=== PATIENT | male | born 1970 | race Caucasian/White ===

== ENCOUNTER 2017-08-18 15:31 | Day surgery (SDC) | payer OTHER ==
[~2017-08-18] VITALS: Ht 182.9 cm; Wt 131.5 kg
[2017-08-18 13:03] VITALS: BMI 39.0
[~2017-08-18 15:31] MED LIST: ASPEC325 PO; ASPI81TA28 PO; CEFAZOLIN 3000MG IV PUSH 22.5 ML IV SCH; CITA40TA4 PO; FENO145T26 PO; FLM4 PO; LACTATED RINGER'S 1000ML 1,000 ML IV SCH; MULT-506 PO; PANT40TA PO; SILD100T PO; SIMV20TA5 PO; TRMO2580 TOP; VARE1PAK15 PO
[2017-08-18 15:53] VITALS: BP 138/84; PULSE 75; TEMP 36.7; O2SAT 97; Ht 182.9 cm; Wt 131.5 kg
[2017-08-18] MEDS ORDERED: NURSING VERBAL MED ORDER ONE (17:00)
--- NOTE | 2017-08-18 17:01 | History & Physical Bridge Note ---
H&P Re-Evaluation Bridge Note: I have examined the patient, reviewed the History & Physical and in the interval since the performance of the History & Physical I have noted the following changes of clinical significance: No changes noted
[2017-08-18] MEDS ORDERED: ONDANSETRON INJ 2 MG/ML 2 ML VIAL ONE (17:29)
[2017-08-18] MEDS ORDERED: DEXAMETHASONE SOD INJ 4 MG/ML VIAL ONE (17:29)
[2017-08-18] MEDS ORDERED: LIDOCAINE HCL 2% 2 ML VIAL (20MG/ML) ONE (17:30)
[2017-08-18] MEDS ORDERED: PROPOFOL IV EMULSION 10 MG/ML 20 ML VIAL IV ONE (17:30)
[2017-08-18] MEDS ORDERED: BELLADONNA/OPIUM SUPP 60 MG SUPP PR ONE ×2 (17:55→18:04)
--- NOTE | 2017-08-18 18:27 | [facility] Operative Report ---
Operative Report Operative Date Aug 18, 2017. Pre-Operative Diagnosis Right ureteral stone Post-Operative Diagnosis Right ureteral stone Procedure(s) Performed Cystoscopy, right ureteroscopy, laser lithotripsy, basket stone extraction, right stent insertion Surgeon Dr. Stafford Advertising Intern Surgeon(s) None Estimated Blood Loss 1ml Findings small radio-opaque obstructing distal ureteral stone Specimens a. right ureteral stone fragments Drains 6 fr 26 centimeter double J stent Anesthesia Type General Complication(s) none Disposition yes Recovery Room / PACU Indications obstructing right distal ureteral stone with renal insufficiency Description of Procedure Patient was given general anesthesia and placed in lithotomy position. His genitals were prepped and draped in sterile fashion. Time out held with team. I placed a 21 fr rigid cystoscope to bladder. The urethra is narrow at the meatus and the fossa navicularis. The prostate is small and the bladder neck is quite high. The UOs are close to bladder neck. I placed a road runner wire right ureter with some difficulty with the stone in the distal ureter about 20mm from the Uo. I saw very brisk efflux once the wire was up. There was also some thick tubular tissue seen passing. I could not pass a 5 fr along the wire as stone is quite obstructing but I was able to manilupate a stiff wire up the ureter. I calibrated just the very distal ureter below the stone with a dual lumen. I placed a short semirigid scope into the distal ureter. I used a 200 micron holmium laser to gragment the stone into about 6 pieces. I use a 2.4 fr zero tip basket to grasp the largest fragment and removed it and sent it for specimen. I then placed a 26 centimeter 6 Fr double J stent easily. There is brisk efflux after placement. I left bladder empty and concluded case. I placed a belladonna and opium suppository for post-op pain. He transferred to recovery under my escort, in stable condition. Plan: Home today Pyridium for dysuria x 3 days flomax daily oral pain meds as needed stent out in 1-2 weeks ASA 3 clean contaminated case 40 seconds fluoro ancef antibiotic key person I attest to the content of the Intraoperative Record and any orders documented therein. Any exceptions are noted below.
[2017-08-18] MEDS ORDERED: OXYC-57 PO (18:29)
[2017-08-18] MEDS ORDERED: PHEN-775 PO (18:29)
[2017-08-18] MEDS ORDERED: LABETALOL HCL IV 5 MG/ML 20ML IV PRN (18:30)
[2017-08-18] MEDS ORDERED: PROMETHAZINE HCL INJ 12.5 MG in SODIUM CHLORIDE 0.9% 50ML 50 ML IV PRN (18:30)
[2017-08-18] MEDS ORDERED: EpHEDrine SULFATE INJ 50 MG/ML AMP IV PRN (18:30)
[2017-08-18] MEDS ORDERED: ATROPINE SULFATE 0.1 MG/ML 5ML SYR IV PRN (18:30)
[2017-08-18] MEDS ORDERED: ONDANSETRON INJ 2 MG/ML 2 ML VIAL IV PRN (18:30)
[2017-08-18] MEDS ORDERED: NALOXONE HCL 0.4 MG/1 ML VIAL/CARP IV PRN (18:30)
[2017-08-18] MEDS ORDERED: FENTANYL CITRATE INJ 50 MCG/1 ML 2 ML VIAL IV PRN (18:30)
[2017-08-18] MEDS ORDERED: FLUMAZENIL 0.1 MG/1 ML 10 ML VIAL IV PRN (18:30)
--- NOTE | 2017-08-18 18:30 | Discharge Instructions ---
Discharge Instructions Date of Service Aug 18, 2017. Admission Reason for Admission: Right ureteral Stone Discharge Discharge Diagnosis / Problem: right ureteral stone Discharge Goals Goal(s): Decrease discomfort, Improve function, Improve disease control Activity Recommendations Activity Limitations: resume your previous activity Lifting Limitations: none Exercise/Sports Limitations: as tolerated May Resume Sexual Activity: when tolerated Shower/Bathe: no limitations Driving or Machine Use: resume 1 day after discharge . Instructions / Follow-Up Instructions / Follow-Up stent removal in 1-2 weeks at [facility] Current Hospital Diet Patient's current hospital diet: Discharge Diet Recommended Diet: Renal Diet Fluid Restriction: None Procedures Procedures Performed: Cystoscopy, right ureteroscopy, laser lithotripsy, basket stone extraction, right stent insertion Pending Studies Studies pending at discharge: no Medical Emergencies . Who to Call and When: Medical Emergencies: If at any time you feel your situation is an emergency, please call 911 immediately. . Non-Emergent Contact Non-Emergency issues call your: Urologist Call Non-Emergent contact if: temperature is above 100.5, your pain is not controlled . . "Provider Documentation" section prepared by Brandi Stafford. . [place] Drug Monitoring Program Search Results: patient reviewed within database, no issues identified
[2017-08-18] MEDS ORDERED: PERCOCET HOME PACK PO ONE (18:45)
[2017-08-18] MEDS ORDERED: PHENAZOPYRIDINE HCL 200 MG TAB PO PRN (18:45)
[2017-08-18] MEDS ORDERED: OXYCODONE/ACETAMINOPHEN 5-325 TAB PO PRN (18:45)
[2017-08-18 19:01] VITALS: BP 148/83; PULSE 61; TEMP 36.6; O2SAT 95
--- NOTE | 2017-08-18 19:16 | DIAGNOSTIC IMAGING REPORT ---
[facility] CLINICAL HISTORY: 46 years-old Male presenting with RIGHT KIDNEY STONE. TECHNIQUE: 3 fluoroscopic spot image(s) obtained as part of an intraoperative procedure. COMPARISON: None. FINDINGS/IMPRESSION: A guidewire was introduced into the right ureter and a right ureteral stent was placed. Please see surgical report for further details. Dose area product (mGy.cm^2): 4057.1. Fluoroscopy time: 82.5 seconds. Number of fluoroscopic spot images: 3. Electronically signed by: Jairo Jacobo M.D. 08/18/2017 7:14 PM Dictated Date/Time: 08/18/2017 7:13 PM
--- NOTE | 2017-08-18 19:20 | Anesthesiology Progress Note ---
Anesthesia Post Op Note Date & Time Aug 18, 2017 at 19:19 Vital Signs Pain Intensity: 0 Vital Signs Past 12 Hours Date Time Temp Pulse Resp B/P (MAP) Pulse Ox O2 Delivery O2 Flow Rate FiO2 08/18/17 19:01 36.6 61 18 148/83 95 Room Air 10 Oxymask 08/18/17 18:43 68 12 08/18/17 18:43 69 12 95 08/18/17 18:41 148/83 08/18/17 18:39 36.4 65 18 125/90 (105) 95 Room Air Oxymask 08/18/17 18:38 67 18 95 08/18/17 18:38 67 18 08/18/17 18:37 152/70 08/18/17 18:33 65 15 97 08/18/17 18:33 65 15 08/18/17 18:31 156/86 08/18/17 18:28 74 15 97 08/18/17 18:28 73 15 08/18/17 18:26 142/72 08/18/17 18:23 65 13 100 08/18/17 18:23 64 13 08/18/17 18:22 66 16 08/18/17 18:22 65 16 100 08/18/17 18:21 129/84 08/18/17 18:17 70 13 100 08/18/17 18:17 69 13 08/18/17 18:16 145/73 08/18/17 18:13 146/73 08/18/17 18:12 36.0 73 15 146/73 (94) 100 Oxymask 10 08/18/17 15:53 36.7 75 18 138/84 (102) 97 Room Air Notes Mental Status: alert / awake / arousable, participated in evaluation Pt Amnestic to Procedure: Yes Nausea / Vomiting: adequately controlled Pain: adequately controlled Airway Patency, RR, SpO2: stable & adequate BP & HR: stable & adequate Hydration State: stable & adequate Anesthetic Complications: no major complications apparent
[2017-08-18 19:29] VITALS: BP 130/74; PULSE 68; O2SAT 95
== END 2017-08-18 19:55 | disposition home or self-care (01) ==
LOC: C.ACU 15:31
PROVIDERS: ATTEND Urology
DX: N20.1 Calculus of ureter (principal); E78.5 Hyperlipidemia, unspecified; K21.9 Gastro-esophageal reflux disease without esophagitis; F43.21 Adjustment disorder with depressed mood; N52.9 Male erectile dysfunction, unspecified; F90.9 Attention-deficit hyperactivity disorder, unspecified type; G47.33 Obstructive sleep apnea (adult) (pediatric); Z89.411 Acquired absence of right great toe; Z88.5 Allergy status to narcotic agent; Z91.013 Allergy to seafood; Z82.49 Family history of ischemic heart disease and other diseases of the circulatory system